=== PATIENT | female | born 1945 | race Caucasian/White ===

== ENCOUNTER 2020-05-14 08:13 | Outpatient (RCR) | payer MEDICARE, OTHER, SELFPAY ==
[2020-05-14] MEDS: COVID-19 VACC, MRNA(PFIZER)/PF 30 MCG/0.3 ML SYRINGE IM (16:05)
[2020-06-04] MEDS: COVID-19 VACC, MRNA(PFIZER)/PF 30 MCG/0.3 ML SYRINGE IM (16:08)
== END 2020-08-13 23:59 ==
LOC: IMMUN 08:13
PROVIDERS: PCP Family Medicine; Visit Provider Family Medicine
DX: Z23 Encounter for immunization (principal)
CPT/HCPCS: 0001A; 0002A; 91300

== ENCOUNTER 2023-09-11 16:05 | Emergency (ER) | payer MEDICARE, OTHER, SELFPAY ==
[2023-09-11 16:05] VITALS: BP 146/76; PULSE 87; RESP 18; TEMP 36.1; O2SAT 97; BMI 38.8
--- NOTE | 2023-09-11 16:24 | EDS_ITS ---
HPI HPI - Fall History of Present Illness Chief Complaint: Laceration Detail of Chief Complaint: Through and through lip laceration after she tripped and fell. Informant: patient Occured/Mechanism Occurred: Today and Hours Mechanism/Context: Yes same level fall and Yes trip Usually ambulates: Without assistance Pain/Injury Pain Location: face Quality of Pain: Dull Current Severity: Mild Maximum Severity: Mild Narrative Narrative: 78-year-old female healthy. Walking through her home tripped over a piece of medical equipment for her and when her face hit the floor she has a through and through laceration of her right upper lip. Does not involve the vermilion border. No dental injury. No LOC. She is on no blood thinners. Denies any other injuries. Denies any neck, chest or abdominal pain. Tetanus Immunization: <5 years Prior similar symptoms: No Recent Illness/Hospitalization: No PFSH PFSH Medical History no medical history Allergy/AdvReac Type Severity Reaction Status Date / Time No Known Allergies Allergy Verified 09/11/23 16:07 Social History Smoking Status: Never smoker ROS ROS ED ROS Narrative Denies recent illness. Review of Systems ROS Unobtainable: Denies due to encephalopathy Constitutional Constitutional ED: Denies chills or fever(s) Eyes Eyes: Denies blurry vision ENT ENT ED: Denies ear pain Cardiovascular Cardiovascular: Denies chest pain Respiratory/Chest Respiratory/Chest: Denies cough Gastrointestinal Gastrointestinal: Denies abdominal pain Genitourinary Genitourinary ED: Denies dysuria Musculoskeletal Musculoskeletal: Denies arthralgias Integumentary Denies abscess Neurologic Neurologic: Denies headache(s) Psychiatric Psychiatric: Denies anxiety Endocrine Endocrinology: Denies polydipsia Hematologic/Lymphatic Hematologic/Lymphatic: Denies easy bleeding or easy bruising Allergic/Immunologic Allergic/Immunologic ED: Denies mouth swelling, tongue swelling or urticaria EXAM Physical Exam Narrative Exam Narrative: 78-year-old female no acute distress vital signs stable afebrile. HEENT exam is about 2 and half centimeter laceration above her right upper lip. Does not involve the lip of the vermilion border. There is a through and through laceration on the inside. Dentitions intact. Jaws nontender. She can open and close her mouth on any difficulty. There is no other facial hematomas. Scalp nontender. Neck nontender. Trachea midline. Back and spine nontender. Lungs clear. Heart regular rhythm no murmur chest wall and ribs nontender. Abdomen soft nontender. Pelvic girdle intact. Full range of motion in both upper and lower extremities. Normal lead front desk agent strength. Normal dorsi plantarflexion. Neurologically she is awake and alert. Answering questions following commands. GCS of 15. Const Vital Signs: 09/11/23 16:05 Temperature 97 F L Temperature Source Temporal Pulse Rate 87 Respiratory Rate 18 Blood Pressure 146/76 H Blood Pressure Mean 99 Pulse Ox 97 Oxygen Delivery Method Room Air Positive well nourished and well developed; Negative for obese, cachectic, contractures or unkempt General Appearance ED: well developed and NAD; Negative for unkempt, cachectic or contractures Nutritional Appearance: Negative for cachectic or obese HEENT Reports normocephalic HEENT Narrative: Right upper lip laceration through and through. Dentition intact. trauma and tenderness; Negative for atraumatic Eyes PERRL and EOMs intact bilaterally General Eye ED: Negative for pale conjunctiva, scleral icterus or other Neck full ROM, no lymphadenopathy and supple General: Negative for tenderness Chest Wall inspection of chest normal and palpation of chest normal Chest: Negative for other Resp normal respiratory effort, no retractions and clear to auscultation bilaterally Effort and Inspection: Negative for pain with movement Auscultation: Negative for rales, rhonchi or wheezes Cardio regular rate, regular rhythm, S1 normal heart sound, S2 normal heart sound and no murmurs Rate: Negative for bradycardia or tachycardic Rhythm: Negative for abnormal rhythm Bruits: Negative for other GI non-tender, non-distended and no masses Inspection: Negative for abdominal distention Palpation: soft; Negative for guarding or rebound tenderness present Back/Spine no CVA tenderness General Back: Negative for CVA tenderness Cervical Spine: Negative for cervical spine tenderness Lumbar Spine / Lower Back: Negative for lumbar spinal tenderness Neuro oriented x3, CN's II-XII intact bilaterally, moves all extremities and no focal motor deficits Maspeth Coma Scale: document GCS findings Spontaneous Obeys Commands Oriented 15 Sensorium / Orientation: alert, oriented to person and oriented to place; Negative for oriented to time, orientation impaired, confused, lethargic or stuporous Motor Exam: strength 5/5 throughout Psych mental status grossly normal and thought process normal Appearance: Negative for unkempt Attitude: No agitated Mood & Affect: Negative for depressed, anxious or tearful Skin General Skin Exam: Negative for other Lesions: no lesions Rashes: no rashes MDM MDM MDM Narrative Medical decision making narrative: 70-year-old female with tripped and fell over something at home with a through and through laceration of the right upper lip. Tetanus is up-to-date. Locally anesthetized, cleaned and will be sutured closed. Procedures Lacerations Right upper lip through and through laceration repair:: Length: 1 in Depth: Sub Q Shape: Through and through Prep: Shure-Clens Laceration repair: Lidocaine, Local, Skin sutures and Wound explored Number of Sutures/Isiah: 5 Suture Information: Vicryl, Ethilon and 5-0 Comment: Through and through right upper lip laceration. About 1 inch in length. Local anesthetized with lidocaine. Cleaned with Shur-Clens and washed with saline. Explored. Closed on the outside using 3 simple interrupted 5-0 Ethilon sutures. Proper hemostasis and wound closure is obtained. The inside I used to Vicryl 5-0 Ethilon sutures. Went over wound care and suture removal with the patient. Discharge Plan Triage Chief Complaint: Laceration ED Provider: Shilo Hernandez Dx/Rx/DC Orders Clinical Impression: Fall, Laceration of lip Instructions: ED Laceration, All Closures Primary Care Provider: Santos Rogers Referrals: Santos Rogers MD [Primary Care Provider] - 7 Days for suture removal Activity Restrictions/Additional Instructions: Ice to your lip. Motrin and Tylenol for pain. Stitches out in 5 to 7 days. 3 stitches on the outside of your lip on your face need to be taken out in 5 to 7 days. The 2 inside stitches should dissolve they are dissolvable stitches. There is do not need to be removed. Return if any signs of infection or any problems. Print Language: Peruvian Disposition Disposition: Home, Self Care
[2023-09-11] MEDS: Lidocaine 1% (20 ml mdv) 20 ML Vial 10 ML INFILT (16:34)
== END 2023-09-11 16:57 | disposition home or self-care (01) ==
PROVIDERS: Emergency Provider Emergency Medicine; PCP Family Medicine; Visit Provider Emergency Medicine
DX: S01.511A Laceration without foreign body of lip, initial encounter (principal); W18.30XA Fall on same level, unspecified, initial encounter
CPT/HCPCS: 12011; 99283; J7030; A4216